=== PATIENT | female | born 1975 | race Two or more races ===

== ENCOUNTER 2019-06-26 20:22 | Inpatient (IN) | payer SELFPAY ==
[~2019-06-26] VITALS: Ht 157.5 cm; Wt 61.6 kg
[2019-06-26 21:01] LABS: Urine Amorphous Crystal FEW /hpf (None Seen); Urine Bacteria NONE SEEN /hpf (None Seen); Urine Blood Negative /uL (Negative); Urine Mucus FEW (None Seen); Urine Specific Gravity 1.029 (1.001-1.035); Urine WBC 4 /hpf (0 - 5)
[2019-06-26 21:23] LABS: Basophils # (auto) 0.1 uL; Basophils % (auto) 0.4 % (0.0-2.0); Eosinophils # (auto) 0.1 uL; Eosinophils % (auto) 0.4 % (0.0-7.0); Hematocrit 38.5 % (36.0-46.0); Hemoglobin 13.2 g/dL (12.2-16.2); Lymphocytes # (auto) 1.1 uL; Lymphocytes % (auto) 7.5 % (10.0-50.0); Mean Corpuscular Hemoglobin 32.1 pg (28.0-32.0); Mean Corpuscular Hgb Conc. 34.3 g/dL (32.0-36.0); Mean Corpuscular Volume 93.6 fL (80.0-100.0); Monocytes # (auto) 0.5 uL; Monocytes % (auto) 3.1 % (0.0-12.0); Neutrophils # (auto) 13.2 uL; Neutrophils % (auto) 88.6 % (37.0-80.0); Platelet Count (auto) 332 10^3/uL (140-450); Red Blood Cells 4.11 10^6/uL (4.0-5.20); Red Cell Distribution Width 12.9 % (11.8-14.3); White Blood Cell 14.9 10^3/uL (4.4-10.8)
[2019-06-26 21:39] LABS: Albumin 3.9 g/dL (3.4-5.0); Calcium 9.2 mg/dL (8.5-10.1); Potassium 3.4 mmol/L (3.5-5.1)
[2019-06-26 21:41] LABS: BUN/Creatinine Ratio 30.8; Bilirubin, Total 0.3 mg/dL (0.2-1.0); Total Protein 7.7 g/dL (6.4-8.2)
[2019-06-27] MEDS ORDERED: SODIUM CHLORIDE 0.9% 1,000 ML IV ONE
[2019-06-27] MEDS ORDERED: MORPHINE SULFATE 4 MG/ML SYR/VIAL IV ONE
[2019-06-27] MEDS ORDERED: ONDANSETRON HCL 4 MG/2 ML VIAL IV ONE
[2019-06-27 05:45] VITALS: BP 133/76
--- NOTE | 2019-06-27 05:51 | NUR ---
MS admit from ER KAVIN SOUZA admitted to MS with out SBAR received. Patient oriented to LENKA AVITIA RN primary RN, unit, room, bed, and unit policies regarding patient care and visiting hours. Patient weighed by bedscale and encouraged to call if they need something. All questions and concerns addressed, patient verbalized understanding.
[2019-06-27] MEDS ORDERED: GASTROGRAFIN 120 ML SOL ONE (07:17)
--- NOTE | 2019-06-27 07:19 | NUR ---
closing notes endorsed care to day shift nurseShyann. No s/s distress/sob nor pain.
--- NOTE | 2019-06-27 07:25 | NUR ---
OPENING SHIFT NOTE: PATIENT ASLEEP IN BED, AWOKEN TO VOICE, RESPIRATIONS EVEN AND UNLABORED. PATIENT UPDATED ON PLAN OF CARE. NG TUBE DISCONNECTED FOR PATIENT TO BE TAKEN DOWN FOR SMALL BOWEL SERIES. PATIENT VERBALIZED UNDERSTANDING, ABLE TO AMBULATE WITH STEADY GAIT TO WHEELCHAIR. WILL CONTINUE TO MONITOR.
[2019-06-27] MEDS ORDERED: INFLUENZA QUAD 2019-2020 0.5ml SYRG IM ONE (08:00)
[2019-06-27 09:16] VITALS: BP 144/87
--- NOTE | 2019-06-27 10:30 | NUR ---
CALL FROM MD KELLER: REQUESTING THIS RN TO CONTACT HIM ONCE RESULTS OF SMALL BOWEL SERIES ARE RESULTED.
[2019-06-27] MEDS: PANTOPRAZOLE 40 MG/10 ML VIAL INJ IV SCH (10:47)
[2019-06-27] MEDS: SODIUM CHLORIDE 0.9% 1,000 ML IV SCH ×2 (10:48→16:45)
[2019-06-27] MEDS: MORPHINE SULFATE 4 MG/ML SYR/VIAL IV PRN ×3 (10:55→20:30)
[2019-06-27 13:00] VITALS: BP 133/74
[2019-06-27] MEDS: ONDANSETRON HCL 4 MG/2 ML VIAL IV PRN ×2 (16:20→20:30)
--- NOTE | 2019-06-27 16:38 | NUR ---
PAGE MADE TO MD KELLER FOR SMALL BOWEL SERIES RESULTS TO BE GIVEN TO .
[2019-06-27 16:49] VITALS: BP 151/88
--- NOTE | 2019-06-27 17:00 | NUR ---
NO RESPONSE FROM MD KELLER FOR RESULTS REQUESTED.
--- NOTE | 2019-06-27 19:22 | NUR ---
CARE ENDORSED TO LENKA BROWN.
--- NOTE | 2019-06-27 19:25 | NUR ---
Opening Shift Note Assumed care of patient. Pt is awake, alert, and orientated x 4. No S/S of distress/SOB but pain 7/10 in midline abdomen. Pt has NGT on right nares at 59 and connected to LIS with 225 ml of dark-orange fluid in suction container. Bed is in lowest position with side rails up x 2. Bed brakes are locked and call light is with in reach. Hob is 30 degrees. Instructed on POC and to call for assist PRN, will continue to monitor for changes Q1hr and PRN.
--- NOTE | 2019-06-27 20:42 | NUR ---
Family Family at bedside. Reinforced the need to keep patient on NPO. Family and patient verbalized understanding.
[2019-06-27 22:00] VITALS: BP 145/78
[2019-06-28 05:00] VITALS: BP 142/78
[2019-06-28 06:26] LABS: Basophils # (auto) 0.1 uL; Basophils % (auto) 0.8 % (0.0-2.0); Eosinophils # (auto) 0 uL; Eosinophils % (auto) 0.1 % (0.0-7.0); Hematocrit 36.1 % (36.0-46.0); Hemoglobin 12.4 g/dL (12.2-16.2); Lymphocytes # (auto) 1.5 uL; Mean Corpuscular Hgb Conc. 34.2 g/dL (32.0-36.0); Mean Corpuscular Volume 93.5 fL (80.0-100.0); Monocytes # (auto) 0.6 uL; Monocytes % (auto) 5.8 % (0.0-12.0); Neutrophils # (auto) 7.5 uL; Neutrophils % (auto) 77.3 % (37.0-80.0); Nucleated Red Blood Cells % 0.1 %; Platelet Count (auto) 300 10^3/uL (140-450); Red Blood Cells 3.86 10^6/uL (4.0-5.20); Red Cell Distribution Width 13.2 % (11.8-14.3); White Blood Cell 9.7 10^3/uL (4.4-10.8)
[2019-06-28 06:43] LABS: Calcium 8.6 mg/dL (8.5-10.1); Potassium 3.1 mmol/L (3.5-5.1)
[2019-06-28 06:45] LABS: BUN/Creatinine Ratio 37.7
--- NOTE | 2019-06-28 07:04 | NUR ---
closing notes endorsed care to day shift nurseShyann. No s/s of distress/sob nor pain. NGT still in place and suction container has 450 ml of dark-orange fluid. totaling 225ml of ngt output during noc shift.
--- NOTE | 2019-06-28 07:50 | NUR ---
OPENING SHIFT NOTE: PATIENT ALERT AND ORIENTED X4. RESPIRATIONS EVEN AND UNLABORED. NGT TO RIGHT NARE INTACT AND DRAINING, CANISTER CHANGED FOR ACCURATE MEASUREMENT FOR 12 HOUR SHIFT AT 400 [place] BROWN THICK SECRETIONS. PATIENT DENIES ANY PAIN AT THIS TIME. ABLE TO ASSIST PATIENT TO BATHROOM. PATIENT DENIES HAVING A BOWEL MOVEMENT, ONLY URINE, HOWEVER BOWEL SOUNDS ARE ACTIVE IN BILATERAL LOWER QUADRANTS. CALL LIGHT WITHIN REACH, WILL CONTINUE TO MONITOR.
[2019-06-28] MEDS ORDERED: POTASSIUM CHLORIDE 40 MEQ, LIDOCAINE 1% (LOCAL ANESTH.) 4 ML in SODIUM CHL 0.9% 100 ML IV ONE (08:30)
--- NOTE | 2019-06-28 08:32 | NUR ---
MD HANNAH PARMAR. POTASSIUM ORDER FOR REPLACEMENT GIVEN. MD Davis JACOBO POSTDOCTORAL SCIENTIST TO SEE PATIENT FOR SURGICAL CONSULT.
[2019-06-28] MEDS: SODIUM CHLORIDE 0.9% 1,000 ML IV SCH ×2 (08:50→17:32)
[2019-06-28 09:00] VITALS: BP 151/78
--- NOTE | 2019-06-28 09:00 | NUR ---
CALL FROM [facility]: TECH NAMED DESTINEE INFORMED THIS RN PATIENT HAS, "AN ONGOING SMALL BOWEL OBSTRUCTION."
[2019-06-28] MEDS: PANTOPRAZOLE 40 MG/10 ML VIAL INJ IV SCH (09:59)
[2019-06-28 11:28] LABS: INR 1.13 (0.9-1.15); Partial Thromboplastin Time 24.5 sec (23.64-32.05)
--- NOTE | 2019-06-28 11:51 | NUR ---
IV: IV IN LEFT FOREARM DC'D MANUAL PRESSURE APPLIED. CATHETER INTACT. NEW IV IN RIGHT AC 20G PLACED. FIRST ATTEMPT. PATIENT TOLERATED WELL.
--- NOTE | 2019-06-28 12:22 | NUR ---
MD Davis PARMAR. PER , PATIENT SMALL BOWEL OBSTRUCTION MAY BE RESOLVING, ABDOMEN IS SOFT. CONTINUE CURRENT TREATMENT, AND REPEAT KUB TOMORROW TO SE IF CONTRAST HAS MOVED.
--- NOTE | 2019-06-28 13:48 | NUR ---
IV: IV IN RIGHT AC REDDENED, AND DISCONTINUED. NEW IV PLACED IN LEFT AC 20G, PLACED BY STUDENT RN WITH SUPERVISION OF INSTRUCTOR. FIRST ATTEMPT, TOLERATED WELL.
--- NOTE | 2019-06-28 13:56 | NUR ---
PATIENT FOOD REQUEST FORM SENT FOR FOOD TRAY NOT TO INCLUDE RED MEAT, ONLY FISH [place]. Addendum: 06/28/19 at 1607 by DARREN COLIN RN RN MISTAKEN ENTRY
[2019-06-28 17:00] VITALS: BP 138/79
--- NOTE | 2019-06-28 18:59 | NUR ---
CARE ENDORSED TO JOSHUA BROWN.
[2019-06-28 22:00] VITALS: BP 155/87
--- NOTE | 2019-06-28 22:30 | NUR ---
talked to dr. solomon, hospitalist. new orders, Tylenol for headache.
[2019-06-28] MEDS ORDERED: ACETAMINOPHEN 325 MG TAB PO ONE (22:45)
[2019-06-29 05:00] VITALS: BP 134/77
[2019-06-29] MEDS: SODIUM CHLORIDE 0.9% 1,000 ML IV SCH (05:20)
--- NOTE | 2019-06-29 05:20 | NUR ---
300 ML OUT FROM NG TUBE
[2019-06-29 05:27] LABS: Basophils # (auto) 0.1 uL; Basophils % (auto) 0.9 % (0.0-2.0); Eosinophils # (auto) 0.1 uL; Eosinophils % (auto) 0.9 % (0.0-7.0); Hematocrit 36.1 % (36.0-46.0); Hemoglobin 12.4 g/dL (12.2-16.2); Lymphocytes # (auto) 1.8 uL; Lymphocytes % (auto) 22.1 % (10.0-50.0); Mean Corpuscular Hemoglobin 32.1 pg (28.0-32.0); Mean Corpuscular Hgb Conc. 34.2 g/dL (32.0-36.0); Mean Corpuscular Volume 93.8 fL (80.0-100.0); Monocytes # (auto) 0.5 uL; Monocytes % (auto) 5.9 % (0.0-12.0); Neutrophils # (auto) 5.7 uL; Neutrophils % (auto) 70.2 % (37.0-80.0); Platelet Count (auto) 275 10^3/uL (140-450); Red Blood Cells 3.85 10^6/uL (4.0-5.20); Red Cell Distribution Width 13.3 % (11.8-14.3); White Blood Cell 8.2 10^3/uL (4.4-10.8)
[2019-06-29 05:52] LABS: Potassium 3.4 mmol/L (3.5-5.1)
[2019-06-29 06:05] LABS: Albumin 3.1 g/dL (3.4-5.0); Bilirubin, Total 0.4 mg/dL (0.2-1.0); Total Protein 6.5 g/dL (6.4-8.2)
[2019-06-29 09:00] VITALS: BP 134/86
[2019-06-29] MEDS: SOD CHL 0.9%/ KCL 20MEQ 1,000 ML IV SCH ×2 (10:46→22:15)
[2019-06-29] MEDS: PANTOPRAZOLE 40 MG/10 ML VIAL INJ IV SCH (10:46)
[2019-06-29 12:30] VITALS: BP 125/95
--- NOTE | 2019-06-29 14:42 | NUR ---
NUTRITION ASSESSMENT NOTES Please refer to link notes of nutrition screen form filed under the intervention section of the plan of care for further details. Est. Needs: 1850 kcal to 1650 kcal (25-30 kcal/kgBW), 52 gms to 65 gms pro (0.8-1.0 gms/kgBW). Will continue to monitor pertinent labs and reassess nutrient needs prn Thank you. Addendum: 06/29/19 at [address] Amended: Links added.
--- NOTE | 2019-06-29 17:15 | NUR ---
DR SERRANO AT BEDSIDE ORDERS RECEIVED TO DC NG TUBE AND ADVANCE DIET.
--- NOTE | 2019-06-29 17:24 | NUR ---
200 ML OUT FROM NG TUBE
--- NOTE | 2019-06-29 17:25 | NUR ---
NGT removal NGT removed per MD Reaves order following explaination and instruction to patient. Patient verbalized understanding prior to removal. Patient tolerated well.
--- NOTE | 2019-06-29 19:40 | NUR ---
Opening Shift Note Assumed care of patient. Patient is awake and A&O x4. No S/S of distress/SOB noted and denies pain at this time. Instructed on POC and to call for assist PRN, will continue to monitor for changes Q1hr and PRN. Bed locked in lowest position and bed rails up x2. Call light within reach.
[2019-06-29 21:53] VITALS: BP 135/85
[2019-06-30] MEDS: SOD CHL 0.9%/ KCL 20MEQ 1,000 ML IV SCH ×2 (04:40→15:00)
[2019-06-30 05:32] VITALS: BP 105/74
--- NOTE | 2019-06-30 07:30 | NUR ---
Opening Shift Note Assumed care of patient, awake and alert. No S/S of distress/SOB, no pain noted or reported at this time. Updated on POC and instructed to call for assistance as needed, patient verbalized understanding. Bed locked in lowest position, side rails up x2, call light within reach. Will continue to monitor for changes Q1hr and PRN.
[2019-06-30] MEDS ORDERED: ACETAMINOPHEN 325 MG TAB PO ONE (08:15)
[2019-06-30 09:00] VITALS: BP 117/61
[2019-06-30] MEDS: PANTOPRAZOLE 40 MG/10 ML VIAL INJ IV SCH (09:26)
[2019-06-30 13:00] VITALS: BP 120/76
[2019-06-30 13:53] VITALS: BP 120/76
--- NOTE | 2019-06-30 15:15 | NUR ---
Discharge home Discharge instructions given as ordered. Encourage to follow up with PMD or return to the emergency department, as instructed. All questions and concerns addressed. Patient verbalized understanding. Medication reconciliation form completed and copy given to patient. IV removed with catheter intact, pressure dressing applied. Patient taken to vehicle via wheelchair with all personal belongings, accompanied by staff and family member. No distress noted at time of departure.
== END 2019-06-30 15:15 | disposition home or self-care (01) | DRG 390 ==
LOC: ER 20:24 → CENTRAL 20:25
PROVIDERS: ADMIT Nurse Practitioner; ATTEND Family Medicine
PROC: 0D9670Z Drainage of Stomach with Drainage Device, Via Natural or Artificial Opening (ICD-10-PCS; principal; 2019-06-27)
DX: K56.600 Partial intestinal obstruction, unspecified as to cause (principal); E87.6 Hypokalemia; Z98.51 Tubal ligation status
CPT/HCPCS: 36415; 74018; 74176; 74250; 80048; 80053; 81001; 83036; 83690; 84702; 85025; 85610; 85730; 86850; 86900; 86901; 96361; 96374; 96375; C9113; G0378; J2001; J2405